=== PATIENT | male | born 1950 | race American Indian/Alaskan Native ===

== ENCOUNTER 2016-11-26 14:02 | Emergency (ER) | payer MEDICARE ==
[2016-11-26 14:15] VITALS: BP 114/81
[2016-11-26 16:30] LABS: Eosinophils % (Auto) 0.6 % (0.0-4.3); Hematocrit 39.2 % (35.5-45.6); Hemoglobin 13.2 gm/dl (11.8-15.2); Mean Corpuscular HGB Conc 34 % (32-34); Mean Corpuscular Hemoglobin 32 pg (28-32); Mean Corpuscular Volume 96 fl (84-94); Platelet Count 240 K/mm3 (140-440); Red Blood Count 4.08 M/mm3 (3.65-5.03); Red Cell Distribution Width 14.6 % (13.2-15.2); White Blood Count 7.3 K/mm3 (4.5-11.0)
[2016-11-26 17:53] LABS: Anion Gap 18 mmol/L; BUN/Creatinine Ratio 10.76; Blood Urea Nitrogen 14 mg/dL (9-20); Calcium 9.8 mg/dL (8.4-10.2); Carbon Dioxide 23 mmol/L (22-30); Chloride 104.7 mmol/L (98-107); Glucose 87 mg/dL (75-100); Potassium 4.5 mmol/L (3.6-5.0); Sodium 141 mmol/L (137-145)
== END 2016-11-26 23:05 | disposition left against medical advice (07) ==
LOC: ED 14:02
DX: R07.9 Chest pain, unspecified (principal); Z53.21 Procedure and treatment not carried out due to patient leaving prior to being seen by health care provider
CPT/HCPCS: 36415; 80048; 84484; 85025; 93005; 93010

== ENCOUNTER 2016-11-28 13:46 | Emergency (ER) | payer MEDICARE ==
[2016-11-28 14:38] LABS: Basophils % (Auto) 1.1 % (0.0-1.8); Eosinophils % (Auto) 0.9 % (0.0-4.3); Hematocrit 38.9 % (35.5-45.6); Hemoglobin 12.8 gm/dl (11.8-15.2); Mean Corpuscular HGB Conc 33 % (32-34); Mean Corpuscular Hemoglobin 31 pg (28-32); Mean Corpuscular Volume 95 fl (84-94); Platelet Count 238 K/mm3 (140-440); Red Blood Count 4.08 M/mm3 (3.65-5.03); Red Cell Distribution Width 14.7 % (13.2-15.2)
[2016-11-28 14:58] LABS: Anion Gap 18 mmol/L; BUN/Creatinine Ratio 11.66; Blood Urea Nitrogen 14 mg/dL (9-20); Calcium 9.3 mg/dL (8.4-10.2); Carbon Dioxide 23 mmol/L (22-30); Chloride 104.4 mmol/L (98-107); Glucose 83 mg/dL (75-100); Potassium 4.5 mmol/L (3.6-5.0); Sodium 141 mmol/L (137-145)
[2016-11-28 15:44] LABS: Bilirubin,Urine NEG (Negative); Blood,Urine NEG (Negative); Ketones,Urine TR mg/dL (Negative); Leukocyte Esterase,Urine TR (Negative); Mucus,Urine FEW /HPF; Nitrite,Urine NEG (Negative); Protein,Urine <15 mg/dL mg/dL (Negative); Urobilinogen,Urine < 2.0 mg/dL (<2.0)
[2016-11-28] MEDS ORDERED: NORCO 5/325 PO ONE (17:50)
--- NOTE | 2016-11-28 18:44 | Emergency Department Report ---
ED General Adult HPI - General Chief complaint: Chest Pain Stated complaint: CHEST PAIN, BACK PAIN Time Seen by Provider: 11/28/16 17:42 Source: patient Mode of arrival: Ambulatory Limitations: No Limitations - History of Present Illness Initial comments: Patient states "I had a little chest pain but I came for my back". Patient complain of a few seconds of chest pain and stated "I am not worried about that I can't deal with it." He complains of pain which actually appears to be more in his right hip to right lower flank area. He states that he can't walk because of pain but is actually able to ambulate without any difficulty he has no lower extremity weakness. He does not complain of any difficulty with urinating or bowel movements. He denies any radiating pain or any numbness in his leg. He states that he's had these symptoms at least since Thursday 3 days ago when he eloped from the waiting room. He does not complain of any chest pain at this time. -: days(s) Location: back (right lower flank right hip) Radiation: non-radiation Quality: aching Consistency: intermittent Improves with: none Worsens with: movement Associated Symptoms: denies other symptoms Treatments Prior to Arrival: none - Related Data Home Medications Medication Instructions Recorded Confirmed Last Taken Aspirin 81 mg PO DAILY 03/10/16 03/10/16 03/10/16 Coenzyme Q-10 100 mg PO BID 03/10/16 03/10/16 Unknown Nitroglycerin [Nitrostat] 0.4 mg SL Q5M PRN 03/10/16 03/10/16 Unknown Previous Rx's Medication Instructions Recorded Last Taken Type Diltiazem Cd [Cardizem CD] 120 mg PO QDAY #30 capsule 02/07/15 03/10/16 Rx Levothyroxine [Synthroid] 150 mcg PO QAM #30 tablet 03/11/16 Unknown Rx traMADol [Ultram 50 MG tab] 50 mg PO Q6HR PRN #14 tablet 11/28/16 Unknown Rx Allergies Allergy/AdvReac Type Severity Reaction Status Date / Time aspirin AdvReac Bleeding Verified 01/17/15 15:03 ED Review of Systems ROS: Stated complaint: CHEST PAIN, BACK PAIN Other details as noted in HPI Constitutional: denies: chills, fever Eyes: denies: eye pain, eye discharge, vision change ENT: denies: ear pain, throat pain Respiratory: denies: cough, shortness of breath, wheezing Cardiovascular: chest pain. denies: palpitations Endocrine: no symptoms reported Gastrointestinal: denies: abdominal pain, nausea, diarrhea Genitourinary: denies: urgency, dysuria Musculoskeletal: as per HPI, back pain. denies: joint swelling, arthralgia Skin: denies: rash, lesions Neurological: denies: headache, weakness, paresthesias Psychiatric: denies: anxiety, depression Hematological/Lymphatic: denies: easy bleeding, easy bruising ED Past Medical Hx - Past Medical History Previous Medical History?: Yes Hx Hypertension: Yes Hx Heart Attack/AMI: No Hx Renal Disease: Yes (CKD STAGE 2) Hx Sickle Cell Disease: No Hx Seizures: No Hx Asthma: Yes Hx COPD: No Hx HIV: No Additional medical history: ulcer hypothyroid. A cardiac catheterization was done 02/05/2015. It showed mild nonobstructive coronary disease. - Surgical History Hx Coronary Stent: Yes (X1 IN 1999 AND X1 IN 2004) Additional Surgical History: hernia surgery 01/21 - Social History Smoking Status: Current Every Day Smoker Substance Use Type: Alcohol - Medications Home Medications: Home Medications Medication Instructions Recorded Confirmed Last Taken Type Diltiazem Cd [Cardizem CD] 120 mg PO QDAY #30 capsule 02/07/15 03/10/16 Rx Aspirin 81 mg PO DAILY 03/10/16 03/10/16 03/10/16 History Coenzyme Q-10 100 mg PO BID 03/10/16 03/10/16 Unknown History Nitroglycerin [Nitrostat] 0.4 mg SL Q5M PRN 03/10/16 03/10/16 Unknown History Levothyroxine [Synthroid] 150 mcg PO QAM #30 tablet 03/11/16 Unknown Rx traMADol [Ultram 50 MG tab] 50 mg PO Q6HR PRN #14 tablet 11/28/16 Unknown Rx ED Physical Exam - General Limitations: No Limitations General appearance: alert, in no apparent distress - Head Head exam: Present: atraumatic, normocephalic - Eye Eye exam: Present: normal appearance. Absent: scleral icterus - ENT ENT exam: Present: mucous membranes moist - Neck Neck exam: Present: normal inspection - Respiratory Respiratory exam: Present: normal lung sounds bilaterally. Absent: respiratory distress - Cardiovascular Cardiovascular Exam: Present: regular rate, normal rhythm. Absent: systolic murmur, diastolic murmur, rubs, gallop - GI/Abdominal GI/Abdominal exam: Present: soft, normal bowel sounds. Absent: distended, tenderness, guarding, rebound, rigid - Rectal Rectal exam: Present: deferred - Extremities Exam Extremities exam: Present: normal inspection, tenderness (patient's discomfort was somewhat reproducible by range of motion of his right hip. It was reasonably well.), normal capillary refill. Absent: pedal edema, joint swelling , calf tenderness - Back Exam Back exam: Present: normal inspection. Absent: CVA tenderness (R), CVA tenderness (L) - Neurological Exam Neurological exam: Present: alert, oriented X3, CN II-XII intact, normal gait. Absent: motor sensory deficit - Psychiatric Psychiatric exam: Present: normal affect, normal mood - Skin Skin exam: Present: warm, dry, intact, normal color. Absent: rash ED Course Vital Signs 11/28/16 11/28/16 11/28/16 14:09 15:56 16:00 Temperature 98.3 F Pulse Rate 53 L 64 Respiratory 20 22 Rate Blood Pressure 141/72 138/75 147/75 O2 Sat by Pulse 98 96 Oximetry 11/28/16 11/28/16 11/28/16 16:01 16:15 16:30 Temperature Pulse Rate 78 67 63 Respiratory 18 21 20 Rate Blood Pressure 147/75 162/66 O2 Sat by Pulse 98 96 Oximetry 11/28/16 11/28/16 11/28/16 16:45 17:00 17:15 Temperature Pulse Rate 72 67 72 Respiratory 23 21 20 Rate Blood Pressure 162/66 126/67 126/67 O2 Sat by Pulse 95 90 96 Oximetry 11/28/16 11/28/16 11/28/16 17:30 17:45 18:00 Temperature Pulse Rate 67 70 66 Respiratory 21 14 19 Rate Blood Pressure 131/64 131/64 124/68 O2 Sat by Pulse 97 96 98 Oximetry ED Medical Decision Making - Lab Data Result diagrams: 11/28/16 14:20 11/28/16 14:20 - EKG Data -: EKG Interpreted by Mt EKG shows normal: sinus rhythm, axis, intervals, QRS complexes, ST-T waves Rate: normal - EKG Data Interpretation: nonspecific ST-T wave wade (mild) Critical care attestation.: If time is entered above; I have spent that time in minutes in the direct care of this critically ill patient, excluding procedure time. ED Disposition Clinical Impression: Right hip pain, Right flank pain Disposition: TO HOME OR SELFCARE Is pt being admited?: No Does the pt Need Aspirin: No Condition: Stable Instructions: Arthralgia (ED), Flank Pain (ED), Chest Pain (ED) Additional Instructions: Follow-up see her primary care provider or the [facility]. Rx for pain as needed. Return any acute change or problem. Also follow up with your glass silverer. Return to the emergency department should you have any significant chest pain. Prescriptions: traMADol [Ultram 50 MG tab] 50 mg PO Q6HR PRN #14 tablet PRN Reason: Pain Referrals: PRIMARY CARE, [Primary Care Provider] - 3-5 Days [facility] [Provider Group] - 3-5 Days Time of Disposition: 19:51
--- NOTE | 2016-11-28 19:20 | Cat Scan Report ---
FINAL REPORT PROCEDURE: CT abdomen and pelvis without contrast. TECHNIQUE: Computerized axial tomography of the abdomen and pelvis was performed without intravenous contrast. This study is performed without intravascular contrast material and its sensitivity for abdominal and pelvic pathology, including neoplasms, inflammation, abscess, free fluid, thrombosis, arterial dissection and infarction, is reduced compared with a contrast enhanced study. HISTORY: Right flank pain and pelvic pain. COMPARISON: No prior studies are available for comparison. FINDINGS: The lung bases are clear. There are no pleural effusions. The heart size is normal. The liver, pancreas and spleen are grossly normal. The gallbladder is present. The adrenal glands are not enlarged. Both kidneys appear normal in size and configuration. There is a small focal area of diminished attenuation within the right kidney. This could represent a simple cyst, but is incompletely evaluated on this unenhanced study. There are no renal calculi. There is no hydronephrosis. The abdominal aorta has a normal caliber. There is no retroperitoneal adenopathy. A normal appendix is visible. The bladder, seminal vesicles and prostate appear normal. The regional skeleton appears intact. IMPRESSION: Possible small right renal cyst. No evidence of acute disease in the abdomen or pelvis.
[2016-11-28 20:02] VITALS: BP 128/72
== END 2016-11-28 20:00 | disposition home or self-care (01) ==
LOC: ED 13:46
DX: M25.551 Pain in right hip (principal); R10.30 Lower abdominal pain, unspecified; I12.9 Hypertensive chronic kidney disease with stage 1 through stage 4 chronic kidney disease, or unspecified chronic kidney disease; N18.2 Chronic kidney disease, stage 2 (mild); J45.909 Unspecified asthma, uncomplicated; F17.200 Nicotine dependence, unspecified, uncomplicated
CPT/HCPCS: 36415; 74176; 80048; 81001; 84484; 85025; 93005; 93010

== ENCOUNTER 2017-04-21 15:55 | Emergency (ER) | payer MEDICARE ==
[2017-04-21 16:06] VITALS: BP 163/89
--- NOTE | 2017-04-21 17:19 | Emergency Department Report ---
ED General Adult HPI - General Chief complaint: Upper Respiratory Infection Stated complaint: CHEST PAIN AND FLU Time Seen by Provider: 04/21/17 17:05 Source: patient Mode of arrival: Ambulatory Limitations: No Limitations - History of Present Illness Initial comments: Patient is 67 years old male history of coronary artery disease, hypertension, chronic kidney disease and asthma. Patient presented to the ER with 2 week history of cough, productive with greenish sputum, fever and chills. Patient denied any nausea or vomiting. Patient denies chest pain or shortness of breath. - Related Data Home Medications Medication Instructions Recorded Confirmed Last Taken Aspirin 81 mg PO DAILY 03/10/16 03/10/16 03/10/16 Coenzyme Q-10 100 mg PO BID 03/10/16 03/10/16 Unknown Nitroglycerin [Nitrostat] 0.4 mg SL Q5M PRN 03/10/16 03/10/16 Unknown Previous Rx's Medication Instructions Recorded Last Taken Type Diltiazem Cd [Cardizem CD] 120 mg PO QDAY #30 capsule 02/07/15 03/10/16 Rx Levothyroxine [Synthroid] 150 mcg PO QAM #30 tablet 03/11/16 Unknown Rx traMADol [Ultram 50 MG tab] 50 mg PO Q6HR PRN #14 tablet 11/28/16 Unknown Rx Allergies Allergy/AdvReac Type Severity Reaction Status Date / Time No Known Allergies Allergy Unverified 04/21/17 16:20 ED Review of Systems ROS: Stated complaint: CHEST PAIN AND FLU Other details as noted in HPI Comment: All other systems reviewed and negative Constitutional: chills, fever Respiratory: cough. denies: shortness of breath, SOB with exertion, SOB at rest Cardiovascular: denies: chest pain, palpitations Gastrointestinal: denies: abdominal pain, nausea, vomiting, diarrhea, constipation, hematemesis, melena, hematochezia Neurological: denies: headache, weakness, numbness, paresthesias ED Past Medical Hx - Past Medical History Hx Hypertension: Yes Hx Heart Attack/AMI: No Hx Renal Disease: Yes (CKD STAGE 2) Hx Sickle Cell Disease: No Hx Seizures: No Hx Asthma: Yes Hx COPD: No Hx HIV: No Additional medical history: ulcer hypothyroid. A cardiac catheterization was done 02/05/2015. It showed mild nonobstructive coronary disease. - Surgical History Hx Coronary Stent: Yes (X1 IN 1999 AND X1 IN 2004) Additional Surgical History: hernia surgery 01/21 - Social History Smoking Status: Current Every Day Smoker Substance Use Type: Alcohol - Medications Home Medications: Home Medications Medication Instructions Recorded Confirmed Last Taken Type Diltiazem Cd [Cardizem CD] 120 mg PO QDAY #30 capsule 02/07/15 03/10/16 Rx Aspirin 81 mg PO DAILY 03/10/16 03/10/16 03/10/16 History Coenzyme Q-10 100 mg PO BID 03/10/16 03/10/16 Unknown History Nitroglycerin [Nitrostat] 0.4 mg SL Q5M PRN 03/10/16 03/10/16 Unknown History Levothyroxine [Synthroid] 150 mcg PO QAM #30 tablet 03/11/16 Unknown Rx traMADol [Ultram 50 MG tab] 50 mg PO Q6HR PRN #14 tablet 11/28/16 Unknown Rx ED Physical Exam - General Limitations: No Limitations General appearance: alert, in no apparent distress - Head Head exam: Present: atraumatic, normocephalic, normal inspection - Eye Eye exam: Present: normal appearance, PERRL - ENT ENT exam: Present: normal exam, normal orophraynx, mucous membranes moist - Respiratory Respiratory exam: Present: normal lung sounds bilaterally. Absent: respiratory distress, wheezes, rales, rhonchi, chest wall tenderness, accessory muscle use, decreased breath sounds, prolonged expiratory - Cardiovascular Cardiovascular Exam: Present: regular rate, normal rhythm, normal heart sounds - GI/Abdominal GI/Abdominal exam: Present: soft, normal bowel sounds. Absent: distended, tenderness, guarding, rebound, rigid, hyperactive bowel sounds, hypoactive bowel sounds, organomegaly, mass, bruit, pulsatile mass - Extremities Exam Extremities exam: Present: normal inspection, full ROM, normal capillary refill - Back Exam Back exam: Present: normal inspection, full ROM. Absent: CVA tenderness (L) - Neurological Exam Neurological exam: Present: alert, oriented X3, CN II-XII intact - Skin Skin exam: Present: warm, intact, normal color. Absent: cyanosis ED Course Vital Signs 04/21/17 16:03 Temperature 99 F Pulse Rate 82 Respiratory 20 Rate Blood Pressure 163/89 O2 Sat by Pulse 96 Oximetry ED Medical Decision Making - Lab Data Result diagrams: 04/21/17 17:40 04/21/17 17:40 - EKG Data -: EKG Interpreted by Me EKG shows normal: sinus rhythm Rate: normal - EKG Data Interpretation: no acute changes - Radiology Data Radiology results: report reviewed Chest x-ray is unremarkable. Critical care attestation.: If time is entered above; I have spent that time in minutes in the direct care of this critically ill patient, excluding procedure time. ED Disposition Clinical Impression: Acute bronchitis, Cough Disposition: DC- TO HOME OR SELFCARE Is pt being admited?: No Condition: Stable Instructions: Acute Bronchitis (ED) Referrals: PRIMARY CARE, [Primary Care Provider] - 3-5 Days
[2017-04-21 17:54] LABS: Basophils % (Auto) 1.5 % (0.0-1.8); Eosinophils % (Auto) 0.4 % (0.0-4.3); Hematocrit 36.8 % (35.5-45.6); Hemoglobin 12.6 gm/dl (11.8-15.2); Lymphocytes # (Auto) 0.5 K/mm3 (1.2-5.4); Lymphocytes % (Auto) 17.5 % (13.4-35.0); Mean Corpuscular HGB Conc 34 % (32-34); Mean Corpuscular Hemoglobin 33 pg (28-32); Mean Corpuscular Volume 98 fl (84-94); Monocytes # (Auto) 0.3 K/mm3 (0.0-0.8); Monocytes % (Auto) 12.1 % (0.0-7.3); Platelet Count 176 K/mm3 (140-440); Red Blood Count 3.77 M/mm3 (3.65-5.03); Red Cell Distribution Width 15.9 % (13.2-15.2)
[2017-04-21 18:22] LABS: Alanine Aminotransferase 45 units/L (7-56); Albumin 4.6 g/dL (3.9-5); BUN/Creatinine Ratio 9; Blood Urea Nitrogen 18 mg/dL (9-20); Calcium 9.6 mg/dL (8.4-10.2); Hemolysis Index 25
--- NOTE | 2017-04-21 19:02 | XRay Report ---
FINAL REPORT PROCEDURE: XR CHEST 1V AP TECHNIQUE: Chest radiograph anteroposterior view. CPT 30900 HISTORY: cough COMPARISON: No prior studies are available for comparison. FINDINGS: Heart: Normal. Mediastinum/Vessels: Normal. Lungs/Pleural space: No infiltrate, effusion, or pneumothorax is seen. Bony thorax: No acute osseous abnormality. Life support devices: None. Clips are seen in the upper abdomen. IMPRESSION: No radiographic evidence of acute cardiopulmonary abnormality.
== END 2017-04-21 19:25 | disposition home or self-care (01) ==
LOC: ED 15:55
DX: J20.9 Acute bronchitis, unspecified (principal); R05 Cough; I12.9 Hypertensive chronic kidney disease with stage 1 through stage 4 chronic kidney disease, or unspecified chronic kidney disease; N18.2 Chronic kidney disease, stage 2 (mild); J45.909 Unspecified asthma, uncomplicated; Z95.818 Presence of other cardiac implants and grafts; F17.200 Nicotine dependence, unspecified, uncomplicated
CPT/HCPCS: 36415; 71045; 80053; 84484; 85025; 93005; 93010

== ENCOUNTER 2017-07-10 11:46 | Emergency (ER) | payer MEDICARE ==
[2017-07-10 12:01] VITALS: BP 101/58
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
[2017-07-10 14:29] LABS: Basophils # (Auto) 0.1 K/mm3 (0.0-0.1); Basophils % (Auto) 1.2 % (0.0-1.8); Eosinophils % (Auto) 0.3 % (0.0-4.3); Hemoglobin 12.2 gm/dl (11.8-15.2); Lymphocytes # (Auto) 1.1 K/mm3 (1.2-5.4); Mean Corpuscular HGB Conc 33 % (32-34); Mean Corpuscular Hemoglobin 34 pg (28-32); Mean Corpuscular Volume 103 fl (84-94); Monocytes # (Auto) 0.5 K/mm3 (0.0-0.8); Monocytes % (Auto) 8.1 % (0.0-7.3); Platelet Count 266 K/mm3 (140-440); Red Blood Count 3.58 M/mm3 (3.65-5.03); Red Cell Distribution Width 15.6 % (13.2-15.2)
[2017-07-10 14:44] LABS: Calcium 9.7 mg/dL (8.4-10.2)
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
== END 2017-07-10 19:27 | disposition home or self-care (01) ==
LOC: ED 11:46
DX: S82.55XA Nondisplaced fracture of medial malleolus of left tibia, initial encounter for closed fracture (principal); I12.9 Hypertensive chronic kidney disease with stage 1 through stage 4 chronic kidney disease, or unspecified chronic kidney disease; N18.2 Chronic kidney disease, stage 2 (mild); J45.909 Unspecified asthma, uncomplicated; Z95.1 Presence of aortocoronary bypass graft; F17.200 Nicotine dependence, unspecified, uncomplicated; Z79.82 Long term (current) use of aspirin; Y04.0XXA Assault by unarmed brawl or fight, initial encounter; Y93.89 Activity, other specified; Y92.89 Other specified places as the place of occurrence of the external cause; Y99.8 Other external cause status
CPT/HCPCS: 36415; 72040; 72100; 80048; 82550; 85025

== ENCOUNTER 2017-07-21 11:30 | Emergency (ER) | payer MEDICARE ==
[2017-07-21 11:39] VITALS: BP 155/79
[2017-07-21] MEDS ORDERED: ROCEPHIN IM ONE (13:24)
[2017-07-21] MEDS ORDERED: ZITHROMAX PO ONE (13:24)
--- NOTE | 2017-07-21 13:28 | Emergency Department Report ---
ED General Adult HPI - General Chief complaint: Medical Clearance Stated complaint: DISCHARGE FROM [facility] Time Seen by Provider: 07/21/17 12:49 Source: patient Mode of arrival: Ambulatory Limitations: No Limitations - History of Present Illness Initial comments: Patient presents to emergency department for white thick penile discharge that has been present for the last couple days. Patient complains of pain with urination. Patient does endorse having a STD exposure. Patient also has taken the splint off of his left leg status post ankle fracture 2 weeks ago. Patient states that he is walking around followed ankle and does not need a splint. -: Sudden Location: genitals Radiation: non-radiation Severity scale (0 -10): 2 Quality: burning Improves with: none Worsens with: other (urination) Associated Symptoms: denies other symptoms Treatments Prior to Arrival: none - Related Data Home Medications Medication Instructions Recorded Confirmed Last Taken Aspirin 81 mg PO DAILY 03/10/16 03/10/16 03/10/16 Coenzyme Q-10 100 mg PO BID 03/10/16 03/10/16 Unknown Nitroglycerin [Nitrostat] 0.4 mg SL Q5M PRN 03/10/16 03/10/16 Unknown Previous Rx's Medication Instructions Recorded Last Taken Type Diltiazem Cd [Cardizem CD] 120 mg PO QDAY #30 capsule 02/07/15 03/10/16 Rx Levothyroxine [Synthroid] 150 mcg PO QAM #30 tablet 03/11/16 Unknown Rx traMADol [Ultram 50 MG tab] 50 mg PO Q6HR PRN #14 tablet 11/28/16 Unknown Rx Amoxicillin [Amoxicillin TAB] 875 mg PO BID #14 tablet 04/21/17 Unknown Rx guaiFENesin/CODEINE [Robitussin AC] 10 ml PO TID PRN #100 ml 04/21/17 Unknown Rx HYDROcodone/APAP 5-325 [[place] 1 each PO Q6HR PRN #14 tablet 07/10/17 Unknown Rx 5/325] Allergies Allergy/AdvReac Type Severity Reaction Status Date / Time No Known Allergies Allergy Unverified 04/21/17 16:20 ED Review of Systems ROS: Stated complaint: DISCHARGE FROM [facility] Other details as noted in HPI Constitutional: denies: chills, fever Eyes: denies: eye pain, eye discharge, vision change ENT: denies: ear pain, throat pain Respiratory: denies: cough, shortness of breath, wheezing Cardiovascular: denies: chest pain, palpitations Endocrine: no symptoms reported Gastrointestinal: denies: abdominal pain, nausea, diarrhea Genitourinary: discharge. denies: urgency, dysuria Musculoskeletal: denies: back pain, joint swelling, arthralgia Skin: denies: rash, lesions Neurological: denies: headache, weakness, paresthesias Psychiatric: denies: anxiety, depression Hematological/Lymphatic: denies: easy bleeding, easy bruising ED Past Medical Hx - Past Medical History Hx Hypertension: Yes Hx Heart Attack/AMI: No Hx Renal Disease: Yes (CKD STAGE 2) Hx Sickle Cell Disease: No Hx Seizures: No Hx Asthma: Yes Hx COPD: No Hx HIV: No Additional medical history: ulcer hypothyroid. A cardiac catheterization was done 02/05/2015. It showed mild nonobstructive coronary disease. - Surgical History Hx Coronary Stent: Yes (X1 IN 1999 AND X1 IN 2004) Additional Surgical History: hernia surgery 01/21, CARDIAC STENT - Social History Smoking Status: Current Every Day Smoker Substance Use Type: None - Medications Home Medications: Home Medications Medication Instructions Recorded Confirmed Last Taken Type Diltiazem Cd [Cardizem CD] 120 mg PO QDAY #30 capsule 02/07/15 03/10/16 Rx Aspirin 81 mg PO DAILY 03/10/16 03/10/16 03/10/16 History Coenzyme Q-10 100 mg PO BID 03/10/16 03/10/16 Unknown History Nitroglycerin [Nitrostat] 0.4 mg SL Q5M PRN 03/10/16 03/10/16 Unknown History Levothyroxine [Synthroid] 150 mcg PO QAM #30 tablet 03/11/16 Unknown Rx traMADol [Ultram 50 MG tab] 50 mg PO Q6HR PRN #14 tablet 11/28/16 Unknown Rx Amoxicillin [Amoxicillin TAB] 875 mg PO BID #14 tablet 04/21/17 Unknown Rx guaiFENesin/CODEINE [Robitussin AC] 10 ml PO TID PRN #100 ml 04/21/17 Unknown Rx HYDROcodone/APAP 5-325 [[place] 1 each PO Q6HR PRN #14 tablet 07/10/17 Unknown Rx 5/325] ED Physical Exam - General Limitations: No Limitations General appearance: alert, in no apparent distress - Head Head exam: Present: atraumatic, normocephalic - Eye Eye exam: Present: normal appearance - ENT ENT exam: Present: mucous membranes moist - Neck Neck exam: Present: normal inspection - Respiratory Respiratory exam: Present: normal lung sounds bilaterally. Absent: respiratory distress - Cardiovascular Cardiovascular Exam: Present: regular rate, normal rhythm. Absent: systolic murmur, diastolic murmur, rubs, gallop - GI/Abdominal GI/Abdominal exam: Present: soft, normal bowel sounds - Rectal Rectal exam: Present: deferred - exam: Present: other (deferred) - Extremities Exam Extremities exam: Present: normal inspection, other (left ankle is tender to palpation) - Back Exam Back exam: Present: normal inspection - Neurological Exam Neurological exam: Present: alert, oriented X3 - Psychiatric Psychiatric exam: Present: normal affect, normal mood - Skin Skin exam: Present: warm, dry, intact, normal color. Absent: rash ED Course Vital Signs 07/21/17 11:33 Temperature 97.7 F Pulse Rate 45 L Respiratory 16 Rate Blood Pressure 155/79 O2 Sat by Pulse 98 Oximetry ED Medical Decision Making - Medical Decision Making Discussed with patient the importance of re-applying the splint to his left leg but the patient declined reapplication of splint. Patient states he is walking around fine and does not need to have the splint on. He has not followed up with orthopedic surgery Critical care attestation.: If time is entered above; I have spent that time in minutes in the direct care of this critically ill patient, excluding procedure time. ED Disposition Clinical Impression: Discharge from penis, STD exposure Disposition: - TO HOME OR SELFCARE Is pt being admited?: No Does the pt Need Aspirin: No Condition: Stable Referrals: IKER OTT JR, MD [Primary Care Provider] - 3-5 Days Time of Disposition: 13:26
[2017-07-21] MEDS ORDERED: XYLOCAINE 1% MPF 5 mL ONE (13:32)
== END 2017-07-21 13:39 | disposition home or self-care (01) ==
LOC: ED 11:30
DX: Z20.2 Contact with and (suspected) exposure to infections with a predominantly sexual mode of transmission (principal); R36.9 Urethral discharge, unspecified; I12.9 Hypertensive chronic kidney disease with stage 1 through stage 4 chronic kidney disease, or unspecified chronic kidney disease; N18.2 Chronic kidney disease, stage 2 (mild); J45.909 Unspecified asthma, uncomplicated; Z95.1 Presence of aortocoronary bypass graft; F17.200 Nicotine dependence, unspecified, uncomplicated
CPT/HCPCS: 96372; 99282; J0696

== ENCOUNTER 2017-10-11 10:30 | Emergency (ER) | payer MEDICARE ==
[2017-10-11 10:39] VITALS: BP 134/99
[2017-10-11] MEDS ORDERED: TORADOL IM ONE (10:59)
[2017-10-11] MEDS ORDERED: AUGMENTIN 875 MG PO ONE (10:59)
--- NOTE | 2017-10-11 11:10 | Emergency Department Report ---
Chief Complaint: Animal Bite Stated Complaint: DOG BITE Time Seen by Provider: 10/11/17 10:52 - HPI History of Present Illness: 67-year-old Afro-[place] male presents to the emergency department with complaint of dog bites to the right hand. The dog was his friend's dog and is up-to-date with his vaccinations. He has multiple abrasions, puncture wounds and pain to that right hand. He is unsure of the last time he had a tetanus booster. He has not taken anything for his symptoms prior to presentation. He has a ring on his pinky finger where he also has some swelling. He only complains of a past medical history of "heart problems." - ROS Review of Systems: Positive for right hand pain, abrasions, puncture wounds, swelling Negative for erythema, discharge - Exam Vital Signs: Vital Signs 10/11/17 10:31 Temperature 97.9 F Pulse Rate 52 L Respiratory 18 Rate Blood Pressure 134/99 O2 Sat by Pulse 98 Oximetry Physical Exam: Patient has +2 over 4 radial pulse and cap refill less than 2 seconds to the affected right hand and fingers. There is an abrasion and/or laceration to the dorsal right thumb, to the proximal palm and a few other areas. No current bleeding. There is some swelling to the hand and fingers and the patient has a ring on his fifth/pinky finger. MSE screening note: Focused history and physical exam performed. Due to findings the following was ordered: Patient will receive Augmentin, a tetanus booster. He will have an x-ray of his right hand. We will cut off his ring. ED Disposition for MSE Condition: Stable
--- NOTE | 2017-10-11 11:23 | Emergency Department Report ---
ED Animal Bite HPI - General Chief Complaint: Animal Bite Stated Complaint: DOG BITE Time Seen by Provider: 10/11/17 10:52 Source: patient, family Mode of arrival: Ambulatory Limitations: No Limitations - History of Present Illness Initial Comments: 67-year-old Afro-[place] male presents to the emergency department with complaint of dog bites to the right hand. The dog was his friend's dog and is up-to-date with his vaccinations. He has multiple abrasions, puncture wounds and pain to that right hand. He is unsure of the last time he had a tetanus booster. He has not taken anything for his symptoms prior to presentation. He has a ring on his pinky finger where he also has some swelling. He only complains of a past medical history of "heart problems." Pain to right hand is 6 out of 10 and worse with palpation and achy. No alleviating factors. No medication taken for pain prior to coming to the hospital. This happened at 6 PM yesterday evening. Denies any restriction is moving his fingers of right hand or any radiation of pain proximally. He said the dog is service the and lives in door. Complaint: animal bite Onset/Timin -: hour(s) Right: Hand (the bite puncture wound to palm and scratch rg to right thumb and right small finger. Pain) Animal: dog Animal Control Notified: Yes Description: household pet, immunizations UTD, appeared well Mechanism: bite (puncture wound to right palm), scratch, contact with mucous membr Pain Description: constant, other (a can) Severity scale (0 -10): 6 Context: playing with animal Associated Symptoms: none. 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 received rabies vaccination 03/28) Home Medications Medication Instructions Recorded Confirmed Last Taken Aspirin 81 mg PO DAILY 03/10/16 03/10/16 03/10/16 Coenzyme Q-10 100 mg PO BID 03/10/16 03/10/16 Unknown Nitroglycerin [Nitrostat] 0.4 mg SL Q5M PRN 03/10/16 03/10/16 Unknown Previous Rx's Medication Instructions Recorded Last Taken Type Diltiazem Cd [Cardizem CD] 120 mg PO QDAY #30 capsule 02/07/15 03/10/16 Rx Levothyroxine [Synthroid] 150 mcg PO QAM #30 tablet 03/11/16 Unknown Rx traMADol [Ultram 50 MG tab] 50 mg PO Q6HR PRN #14 tablet 11/28/16 Unknown Rx Amoxicillin [Amoxicillin TAB] 875 mg PO BID #14 tablet 04/21/17 Unknown Rx guaiFENesin/CODEINE [Robitussin AC] 10 ml PO TID PRN #100 ml 04/21/17 Unknown Rx HYDROcodone/APAP 5-325 [[place] 1 each PO Q6HR PRN #14 tablet 07/10/17 Unknown Rx 5/325] Acetaminophen/Codeine [Tylenol 1 tab PO Q6H PRN #14 tab 10/11/17 Unknown Rx /Codeine # 3 tab] Amoxicillin/K Clav Tab [Augmentin 1 tab PO Q12HR #20 tab 10/11/17 Unknown Rx 875MG TAB] Allergies Allergy/AdvReac Type Severity Reaction Status Date / Time No Known Allergies Allergy Verified 10/11/17 10:31 ED Review of Systems ROS: Stated complaint: DOG BITE Other details as noted in HPI Constitutional: denies: chills, fever ENT: denies: throat pain, hearing loss, congestion Respiratory: denies: cough, shortness of breath, SOB with exertion, SOB at rest , stridor, wheezing Cardiovascular: denies: chest pain, palpitations, dyspnea on exertion, edema, syncope, paroxysmal nocturnal dyspnea Gastrointestinal: denies: nausea, vomiting Musculoskeletal: joint swelling, arthralgia. denies: back pain, myalgia Skin: other (abrasion and puncture wound to right hand and fingers). denies: rash, lesions Neurological: denies: headache, numbness, paresthesias ED Past Medical Hx - Past Medical History Previous Medical History?: Yes Hx Hypertension: Yes Hx Heart Attack/AMI: No Hx Renal Disease: Yes (CKD STAGE 2) Hx Sickle Cell Disease: No Hx Seizures: Yes Hx Asthma: Yes Hx COPD: No Hx HIV: No Additional medical history: ulcer hypothyroid. A cardiac catheterization was done 02/05/2015. It showed mild nonobstructive coronary disease. - Surgical History Past Surgical History?: Yes Hx Coronary Stent: Yes (X1 IN 1999 AND X1 IN 2004) Additional Surgical History: hernia surgery 01/21, CARDIAC STENT - Family History Family history: CAD/MS, hypertension - Social History Smoking Status: Current Every Day Smoker Substance Use Type: None - Medications Home Medications: Home Medications Medication Instructions Recorded Confirmed Last Taken Type Diltiazem Cd [Cardizem CD] 120 mg PO QDAY #30 capsule 02/07/15 03/10/16 Rx Aspirin 81 mg PO DAILY 03/10/16 03/10/16 03/10/16 History Coenzyme Q-10 100 mg PO BID 03/10/16 03/10/16 Unknown History Nitroglycerin [Nitrostat] 0.4 mg SL Q5M PRN 03/10/16 03/10/16 Unknown History Levothyroxine [Synthroid] 150 mcg PO QAM #30 tablet 03/11/16 Unknown Rx traMADol [Ultram 50 MG tab] 50 mg PO Q6HR PRN #14 tablet 11/28/16 Unknown Rx Amoxicillin [Amoxicillin TAB] 875 mg PO BID #14 tablet 04/21/17 Unknown Rx guaiFENesin/CODEINE [Robitussin AC] 10 ml PO TID PRN #100 ml 04/21/17 Unknown Rx HYDROcodone/APAP 5-325 [[place] 1 each PO Q6HR PRN #14 tablet 07/10/17 Unknown Rx 5/325] Acetaminophen/Codeine [Tylenol 1 tab PO Q6H PRN #14 tab 10/11/17 Unknown Rx /Codeine # 3 tab] Amoxicillin/K Clav Tab [Augmentin 1 tab PO Q12HR #20 tab 10/11/17 Unknown Rx 875MG TAB] ED Physical Exam - General Limitations: No Limitations General appearance: alert, in no apparent distress - Head Head exam: Present: atraumatic, normocephalic - Eye Eye exam: Present: normal appearance, PERRL, EOMI Pupils: Absent: normal accommodation - ENT ENT exam: Present: normal exam, normal orophraynx, mucous membranes moist, TM's normal bilaterally, normal external ear exam - Neck Neck exam: Present: normal inspection, full ROM. Absent: tenderness, lymphadenopathy - Respiratory Respiratory exam: Present: normal lung sounds bilaterally. Absent: respiratory distress, chest wall tenderness - Cardiovascular Cardiovascular Exam: Present: normal rhythm, bradycardia, normal heart sounds. Absent: systolic murmur, diastolic murmur - Extremities Exam Extremities exam: Present: full ROM (full range of motion to all extremities patient reports pain with opening and closing and, right without any radiation.) , tenderness (tenderness appropriate to right palmar aspect of hand at puncture wound and also right first and fifth digits around the abrasion site.), normal capillary refill, joint swelling (right hand dorsal and palmar), other (No cce. + 2 pulses in all extremities, no neurovascular compromise.Swollen to the right hand with tenderness to palpation, puncture wound and abrasion.). Absent: normal inspection, pedal edema, calf tenderness - Back Exam Back exam: Present: normal inspection, full ROM, other (ambulates without any difficulties). Absent: tenderness, CVA tenderness (R), CVA tenderness (L), muscle spasm, vertebral tenderness, rash noted - Neurological Exam Neurological exam: Present: alert, oriented X3, normal gait, reflexes normal, other (no focal neurological deficit). Absent: motor sensory deficit - Psychiatric Psychiatric exam: Present: normal affect, normal mood - Skin Skin exam: Present: warm, dry, normal color, abrasion (right fifth and first digits, superficial), other (puncture wound and abrasion 2 to right hand). Absent: intact - Expanded Skin Exam Expanded Type of lesion: Present: laceration (superficial puncture wound.), bite/sting ( puncture wound to right palm. Superficial. Positive mucous membranes on tablet now bony abnormality. No tendon exposure.), abrasion (right first and fifth digits) Distribution of rash: RUE (right first DIP and right fifth digit superficial abrasion) Description of rash: Present: tenderness (right hand), swelling (right hand). Absent: erythematous, crusting, discharge, fluctuant, indurated ED Course Vital Signs 10/11/17 10:31 Temperature 97.9 F Pulse Rate 52 L Respiratory 18 Rate Blood Pressure 134/99 O2 Sat by Pulse 98 Oximetry - Reevaluation(s) Reevaluation #1: 10/11/17 12:59 Patient received Toradol 30 mg IM in the emergency room for right hand pain status post dog bite 18 hours ago. Pain is better. Patient able to open and close his right hand and no restriction of movement fingers. He received 60.5 mL to update tetanus. Patient also received first dose of Augmentin emergency room without any adverse reaction. Extensive wound care with irrigation to the right palm puncture site that is superficial without any foreign body noted. A abrasions to right thumb and small finger cleansed with normal saline and all wounds cleansed with iodine and saline. Neosporin ointment placed to abrasion sites and Steri-Strips 2 placed to right palm puncture wound. Patient tolerated procedure well. - Procedure Description Procedures done: Wound care status post dog bite 18 hours ago. Extensive wound care with irrigation to the right palm puncture site that is superficial without any foreign body noted. A abrasions to right thumb and small finger cleansed with normal saline and all wounds cleansed with iodine and saline. Neosporin ointment placed to abrasion sites and Steri-Strips 2 placed to right palm puncture wound. Patient tolerated procedure well. Tetanus vaccine updated. - Laceration /Wound Repair Right Palm Hand Wound Location: upper extremity (right Palm below the right fourth and fifth finger.) Wound Length (cm): 1 (1.5 cm) Wound's Depth, Shape: superficial, irregular, stellate Wound Explored: no foreign body removed Irrigated w/ Saline (ccs): 400 Betadine Prep?: Yes Volume Anesthetic (ccs): 0 Wound Debrided: moderate Wound Repaired With: Steri-strips Number of Sutures: 2 Sterile Dressing Applied?: Yes Critical care attestation.: If time is entered above; I have spent that time in minutes in the direct care of this critically ill patient, excluding procedure time. ED Disposition Clinical Impression: Swelling of right hand, Right hand pain Dog bite Qualifiers: Encounter type: initial encounter Qualified Code(s): W54.0XXA - Bitten by dog, initial encounter Abrasion of finger of right hand Qualifiers: Encounter type: initial encounter Qualified Code(s): S60.419A - Abrasion of unspecified finger, initial encounter Laceration of right hand with delay in treatment Qualifiers: Encounter type: initial encounter Qualified Code(s): S61.411A - Laceration without foreign body of right hand, initial encounter Disposition: DC-01 TO HOME OR SELFCARE Is pt being admited?: No Does the pt Need Aspirin: No Condition: Stable Instructions: Animal Bite (ED), Laceration (ED), Acute Wound Care (ED), Abrasion (ED), Skin Adhesive Care (ED), Arthralgia (ED) Additional Instructions: Please see discharge instruction in acute wound care Follow-up the primary care in 2 days Keep affected area clean and dry Take Tylenol 3 for pain and please do not drive or operate heavy machinery while taking this medication Take Augmentin antibiotic Return to the emergency room if, he developed fever, chills, increased pain and drainage from site, nausea and vomited, increase in redness and/or weakness. Prescriptions: Acetaminophen/Codeine [Tylenol /Codeine # 3 tab] 1 tab PO Q6H PRN #14 tab PRN Reason: moderate to severe pain Amoxicillin/K Clav Tab [Augmentin 875MG TAB] 1 tab PO Q12HR #20 tab Referrals: PRIMARY CARE, [Primary Care Provider] - 10/13/17 Forms: Work/School Release Form(ED) ED Medical Decision Making - Radiology Data Radiology results: report reviewed, image reviewed interpreted by me: X-ray image of the right hand reviewed and no radiopaque foreign body seen. No bony abnormality. Still awaiting final report from radiologist. Minimal soft tissue swelling. * X-ray of right hand status post dog bite reveals no no acute fracture. 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 No foreign body mentioned. Suspect dictated by radiologist report reviewed by myself. Patient: RITESH RAPP MR#: [id number] : 1950 Acct:[id number] Age/Sex: 67 / M ADM Date: 10/11/17 Loc: ED Attending Dr: Ordering Physician: ESTIVEN BHAKTA DO Date of Service: 10/11/17 Procedure(s): XR hand 3+V RT Accession Number(s): [id number] cc: ESTIVEN BHAKTA DO Fluoro Time In Minutes: FINAL REPORT EXAM: XR RT HAND Acute fracture. CLINICAL INDICATIONS: dog bite, right hand pain FINDINGS: PA, lateral and oblique views of the right hand were acquired. The site of injury is not indicated. There is advanced osteoarthritis of the second and third proximal interphalangeal joints. There is a well-corticated ossific density ulnar to the second proximal interphalangeal joint, 0.4 cm, likely previouslyavulsed steophyte. There is soft tissue swelling of the second and third proximal interphalangeal joints. No definite acute fracture is seen. IMPRESSION: THE SITE OF INJURY IS NOT INDICATED ADVANCED OSTEOARTHRITIS OF SECOND AND THIRD PROXIMAL INTERPHALANGEAL JOINTS NO DEFINITE ACUTE FRACTURE IS SEEN Transcribed By: RAYO Dictated By: DENNY VARGAS MD Electronically Authenticated By: DENNY VARGAS MD Signed Date/Time: 10/11/171346 DD/ 46 TD/TT: 10/11/171346 - Medical Decision Making This 67-year-old male presenting to the emergency room after being bitten by dog 18 hours ago. He sustained abrasion to right hand at the thumb and finger and also puncture wound to the right palm. He is complaining of pain and swelling to his right hand. His tetanus vaccine is up-to-date but dog is [facility] and his vaccination is up-to-date. I spoke with on her and he says that dog rabies vaccination on 03/28/2017 I EXAMINED PATIENT AND HIS PHYSICAL EXAM IS NORMAL EXCEPT HE HAS RIGHT HAND SWOLLEN WITHOUT ANY RESTRICTION IN MOVEMENT. HE DOES HAVE PAIN WITH RANGE OF MOTION TO HIS FINGERS AND OPEN AND CLOSE HIS HAND BUT DENIES ANY RADIATION OF PAIN. NO SIGNS OF TENDON INJURY AND WOUND ARE VERY SUPERFICIAL TO INCLUDE ABRASIONS TO RIGHT FIFTH DIGIT AND RIGHT FIRST DIGIT. HE ALSO HAS SUPERFICIAL PUNCTURE WOUND TO HIS RIGHT PALM. MINIMAL SOFT TISSUE SWELLING, NO FOREIGN BODY NOTED AND NO BONY MALLET. RESULTS WAS RELAYED TO THE PATIENT AND HE VOICED UNDERSTANDING. HE ALSO FOR SINUSITIS DIAGNOSIS. WOUND CARE DONE PLEASE REFER TO PROCEDURE NOTE FOR DETAILS. PATIENT TOLERATED WELL. PATIENT HAD X- RAYS OF HIS RIGHT HAND AND NO FOREIGN BODY NOTED WITH SOME MINIMAL SOFT TISSUE SWELLING. PATIENT WAS GIVEN AUGMENTIN 800 MG EMERGENCY ROOM FOR DOG BITES WOUND , TETANUS VACCINE IS UPDATED WITH BOOSTRIX 0.5 ML. NO NEED FOR RABIES VACCINATION OR IMMUNOGLOBULIN WITH HIS DOG IS UP-TO-DATE ON VACCINATION. PATIENT WAS ALSO GIVEN TORADOL 30 MG IM IN EMERGENCY ROOM WHICH CONTROLLED HIS PAIN. PATIENT IS STABLE AND HE HAS A PRIMARY CARE PHYSICIAN I TOLD HIM TO FOLLOW-UP IN 2 DAYS WITH HIS PRIMARY CARE STATUS POST DOGBITE. A/P Dog bite right hand with delayed presentation-patient was bitten by dog 18 hours ago. Tetanus vaccine updated and patient was started noted Augmentin and will be discharged homeon Augmentin. X-ray of right hand showed no foreign body , mild soft tissue swelling but no bony abnormality Multiple abrasion right hand right first and fifth digits which is superficial- Neosporin ointment after extensive wound care. Dog up-to-date on vaccination Arthralgia right hand-Toradol 30 mg IM given for relief of pain. Patient educated on the right, medication, signs of infection, to return to the emergency room if he develops rigidity and fingers, radiation of pain across extremity, inability to move his right hand, drainage and increased swelling redness to right hand, fever and chills and he voiced understanding Patient discharged home in stable condition with a prescription for Augmentin, Tylenol 3 and to follow-up with his primary care physician in 2 days and he was understanding. Pain is controlled. Vital signs stabilized and febrile. - Differential Diagnosis hand fracture open versus closed, sprain, strain, foreign body, MSK pain
[2017-10-11] MEDS ORDERED: NACL 0.9% IR ONE (11:28)
[2017-10-11] MEDS ORDERED: BOOSTRIX IM ONE (11:45)
[2017-10-11] MEDS: TENIVAC IM ONE ×2 (12:29→13:16)
[2017-10-11] MEDS ORDERED: TRIPLE ANTIBIOTIC TP ONE (13:02)
--- NOTE | 2017-10-11 13:53 | XRay Report ---
FINAL REPORT EXAM: XR RT HAND CLINICAL INDICATIONS: dog bite, right hand pain FINDINGS: PA, lateral and oblique views of the right hand were acquired. The site of injury is not indicated. There is advanced osteoarthritis of the second and third proximal interphalangeal joints. There is a well-corticated ossific density ulnar to the second proximal interphalangeal joint, 0.4 cm, likely previouslyavulsed steophyte. There is soft tissue swelling of the second and third proximal interphalangeal joints. No definite acute fracture is seen. IMPRESSION: THE SITE OF INJURY IS NOT INDICATED ADVANCED OSTEOARTHRITIS OF SECOND AND THIRD PROXIMAL INTERPHALANGEAL JOINTS NO DEFINITE ACUTE FRACTURE IS SEEN
== END 2017-10-11 13:32 | disposition home or self-care (01) ==
LOC: ED 10:30
DX: S61.411A Laceration without foreign body of right hand, initial encounter (principal); I12.9 Hypertensive chronic kidney disease with stage 1 through stage 4 chronic kidney disease, or unspecified chronic kidney disease; N18.2 Chronic kidney disease, stage 2 (mild); J45.909 Unspecified asthma, uncomplicated; F17.200 Nicotine dependence, unspecified, uncomplicated; Z95.1 Presence of aortocoronary bypass graft; Z79.82 Long term (current) use of aspirin; W54.0XXA Bitten by dog, initial encounter; Y93.89 Activity, other specified; Y92.89 Other specified places as the place of occurrence of the external cause; Y99.8 Other external cause status
CPT/HCPCS: 73130; 90471; 90715; 96372; 99283; J1885; 90714; A6250

== ENCOUNTER 2018-06-03 12:46 | Inpatient (IN) | payer MEDICARE ==
--- NOTE | 2018-06-03 13:24 | Emergency Department Report ---
ED Chest Pain HPI - General Chief Complaint: Chest Pain Stated Complaint: CHEST PAIN/TACHYCARDIA Time Seen by Provider: 06/03/18 13:05 Source: patient, EMS Mode of arrival: Stretcher Limitations: No Limitations - History of Present Illness Initial Comments: 68-year-old male presents to ED following firing of AICD. Patient says he was in a store when he began to experience chest pain, shortness of breath, felt lightheaded as if he was going to pass out. EMS was called, reported patient's heart rate was in the 150s, appeared to be SVT. Adenosine was about to be administered when patient's defibrillator fired. At that moment, heart rate improved, chest pain and shortness of breath resolved. Patient reported tobacco use, EtOH use, and drug use. Patient states he smoked a "Geekjoint" last night, which is tobacco with cocaine sprinkled on top. Denies any drug use today. Cardiology: Dr Irena FONTENOT Complaint: chest pain -: This afternoon Onset: during rest Pain Location: left chest Pain Radiation: none Severity: moderate Severity scale (0 -10): 0 Quality: tightness Consistency: now resolved Improves With: other (AICD firing) Worsens With: nothing re: dyspnea. denies: nausea, vomting, diaphoresis Treatments Prior to Arrival: defibrillation (by pt's own AICD) - Related Data Home Medications Medication Instructions Recorded Confirmed Last Taken amLODIPine [Norvasc] 5 mg PO DAILY 06/03/18 06/03/18 Unknown Allergies Allergy/AdvReac Type Severity Reaction Status Date / Time No Known Allergies Allergy Verified 10/11/17 10:31 Heart Score - HEART Score History: Highly suspicious EKG: Non-specific Age: > 65 Risk factors: > 3 risk factors or hx of atherosclerotic disease Troponin: < normal limit HEART Score: 7 ED Review of Systems ROS: Stated complaint: CHEST PAIN/TACHYCARDIA Other details as noted in HPI Comment: All other systems reviewed and negative Constitutional: denies: chills, fever Respiratory: shortness of breath. denies: cough Cardiovascular: chest pain Gastrointestinal: denies: nausea, vomiting ED Past Medical Hx - Past Medical History Hx Hypertension: Yes Hx Heart Attack/AMI: No Hx Renal Disease: Yes (CKD STAGE 2) Hx Sickle Cell Disease: No Hx Seizures: Yes Hx Asthma: Yes Hx COPD: No Hx HIV: No Additional medical history: ulcer hypothyroid. A cardiac catheterization was done 02/05/2015. It showed mild nonobstructive coronary disease. - Surgical History Hx Coronary Stent: Yes (X1 IN 1999 AND X1 IN 2004) Additional Surgical History: hernia surgery 01/21, CARDIAC STENT - Social History Smoking Status: Current Every Day Smoker Substance Use Type: Alcohol, Cocaine - Medications Home Medications: Home Medications Medication Instructions Recorded Confirmed Last Taken Type amLODIPine [Norvasc] 5 mg PO DAILY 06/03/18 06/03/18 Unknown History ED Physical Exam - General Limitations: No Limitations General appearance: alert, in no apparent distress - Head Head exam: Present: atraumatic, normocephalic - Eye Eye exam: Present: normal appearance - ENT ENT exam: Present: mucous membranes moist - Neck Neck exam: Present: normal inspection - Respiratory Respiratory exam: Present: normal lung sounds bilaterally. Absent: respiratory distress - Cardiovascular Cardiovascular Exam: Present: regular rate, normal rhythm - GI/Abdominal GI/Abdominal exam: Present: soft. Absent: distended, tenderness - Extremities Exam Extremities exam: Present: normal inspection - Neurological Exam Neurological exam: Present: alert, oriented X3, CN II-XII intact. Absent: motor sensory deficit - Psychiatric Psychiatric exam: Present: normal affect, normal mood - Skin Skin exam: Present: warm, dry, intact, normal color ED Course Vital Signs 06/03/18 06/03/18 06/03/18 12:55 13:00 13:15 Temperature Pulse Rate 80 67 Respiratory 18 18 13 Rate Blood Pressure 114/80 Blood Pressure 108/72 [Left] O2 Sat by Pulse 96 91 Oximetry 06/03/18 06/03/18 14:15 14:35 Temperature 97.9 F Pulse Rate 69 Respiratory 12 Rate Blood Pressure 108/70 Blood Pressure [Left] O2 Sat by Pulse 92 Oximetry - Reevaluation(s) Reevaluation #1: 06/03/18 15:[address] [employer] rep called back. States pt has pacer, not defibrillator, and it was NOT activated. Reports no abnormal findings. - Consultations Consultation #1: 06/03/18 13:43 Dr Paz at bedside to see the pt. ED Medical Decision Making - Lab Data Result diagrams: 06/03/18 13:29 06/03/18 13:29 - EKG Data -: EKG Interpreted by Me EKG shows normal: sinus rhythm, axis, intervals, QRS complexes Rate: normal - EKG Data When compared to previous EKG there are: no significant change (compared to 04/2017) Interpretation: other (borderline V2 ST elevation, no reciprocal changes) - Radiology Data Radiology results: report reviewed, image reviewed - Medical Decision Making 68-year-old male with pacemaker presents for chest pain, shortness of breath, near-syncope 1 day after using cocaine. The patient believed that he received a shock from his implanted device, however cardiologists found that patient does not have a defibrillator initially has a pacer. And, interrogation found no intervention, findings were normal. EKG unchanged from previous, troponin normal. Patient seen and evaluated by drafter construction at bedside. Will admit patient for further observation to hospitalist, Dr. Toledo. Bridge orders placed at his request. - Differential Diagnosis arrythmia, ACS, CHF, drug abuse Critical care attestation.: If time is entered above; I have spent that time in minutes in the direct care of this critically ill patient, excluding procedure time. ED Disposition Clinical Impression: Chest pain, Cocaine abuse Disposition: -09 OP ADMIT IP TO THIS HOSP Is pt being admited?: Yes Condition: Stable Time of Disposition: 15:50
[2018-06-03 13:56] LABS: Basophils # (Auto) 0.1 K/mm3 (0.0-0.1); Eosinophils % (Auto) 1.1 % (0.0-4.3); Hematocrit 36.5 % (35.5-45.6); Hemoglobin 12.5 gm/dl (11.8-15.2); Lymphocytes # (Auto) 0.9 K/mm3 (1.2-5.4); Lymphocytes % (Auto) 27.2 % (13.4-35.0); Mean Corpuscular HGB Conc 34 % (32-34); Mean Corpuscular Volume 102 fl (84-94); Monocytes # (Auto) 0.2 K/mm3 (0.0-0.8); Monocytes % (Auto) 6.4 % (0.0-7.3); Platelet Count 225 K/mm3 (140-440); Red Blood Count 3.57 M/mm3 (3.65-5.03); Red Cell Distribution Width 15.5 % (13.2-15.2)
[2018-06-03 14:05] LABS: INR 0.84 (0.87-1.13)
--- NOTE | 2018-06-03 14:05 | XRay Report ---
AP CHEST: HISTORY: chest pain A 2-lead pacemaker device has been inserted since 04/21/17. Heart size and pulmonary vascularity are within normal limits. The lungs are clear. No evidence for pneumonia, pleural effusion or pneumothorax. Surgical clips are identified overlying the GE junction, correlate with history. IMPRESSION: No acute cardiopulmonary process is identified.
[2018-06-03 14:06] LABS: Partial Thromboplastin Time 33.3 Sec. (24.2-36.6)
[2018-06-03 15:20] LABS: BUN/Creatinine Ratio 11; Blood Urea Nitrogen 16 mg/dL (9-20); Calcium 9.5 mg/dL (8.4-10.2); Hemolysis Index 13
[2018-06-03] MEDS ORDERED: ASPIRIN ONE (15:53)
[2018-06-03] MEDS ORDERED: ASPIRIN PO ONE (15:54)
--- NOTE | 2018-06-03 21:06 | Consultation ---
History of Present Illness Consult date: 06/03/18 Consult reason: arrhythmia, chest pain, shortness of breath History of present illness: 68-year-old man who is admitted to the hospital, presented to the emergency room with complaints of chest pain and palpitations. Apparently it's reported by the rig builder got to him why his heart rate was 150, but there are no rhythm strips for review. It is also reported that the patient subsequently experienced a "defibrillator discharge", but this patient does not have an ICD. Instead, he has a dual-chamber [employer] pacemaker implanted in February 2018 for sinus node dysfunction. On presentation, his ECG is normal sinus rhythm, with QS complexes in V1 to V2, unchanged from his previous ECG tracings. Cardiac enzymes are normal. Chest x- ray shows his dual-chamber pacemaker, normal size cardiac silhouette, no acute changes. The patient has an extensive cardiac disease workup. Three cardiac catheterization procedures in the past several years, in 2009 and twice in 2014 both documented no significant coronary artery disease. He has also had several negative thallium stress test. Most recent stress test was in February 2018 du ring which he exercised for 9 minutes of the Aurelio protocol. Past History Past Medical History: arrhythmia Past Surgical History: Other ([employer] dual-chamber pacemaker implanted February 2018) Medications and Allergies Allergies Allergy/AdvReac Type Severity Reaction Status Date / Time No Known Allergies Allergy Verified 10/11/17 10:31 Home Medications Medication Instructions Recorded Confirmed Last Taken Type amLODIPine [Norvasc] 5 mg PO DAILY 06/03/18 06/03/18 Unknown History Review of Systems Cardiovascular: chest pain, palpitations, shortness of breath, no orthopnea, no rapid/irregular heart beat, no edema, no syncope, no lightheadedness Physical Examination Vital Signs Pulse Resp BP Pulse Ox 80 18 108/72 96 06/03/18 12:55 06/03/18 12:55 06/03/18 12:55 06/03/18 12:55 General appearance: no acute distress HEENT: Positive: PERRL Neck: Positive: neck supple Cardiac: Positive: Reg Rate and Rhythm Lungs: Positive: Decreased Breath Sounds Neuro: Positive: Grossly Intact Abdomen: Positive: Soft Male genitourinary: Positive: deferred Skin: Positive: Clear Extremities: Absent: edema Results 06/03/18 13:29 03/28/19 13:29 Coagulation 06/03/18 Range/Units 13:29 PT 12.0 L (12.2-14.9) Sec. INR 0.84 L (0.87-1.13) APTT 33.3 (24.2-36.6) Sec. CBC 06/03/18 Range/Units 13:29 WBC 3.5 L (4.5-11.0) K/mm3 RBC 3.57 L (3.65-5.03) M/mm3 Hgb 12.5 (11.8-15.2) gm/dl Hct 36.5 (35.5-45.6) % Plt Count 225 (140-440) K/mm3 Lymph # 0.9 L (1.2-5.4) K/mm3 [place] # 0.2 (0.0-0.8) K/mm3 Eos # 0.0 (0.0-0.4) K/mm3 Baso # 0.1 (0.0-0.1) K/mm3 Comprehensive Metabolic Panel 06/03/18 Range/Units 13:29 Sodium 138 (137-145) mmol/L Potassium 3.6 (3.6-5.0) mmol/L Chloride 100.8 (98-107) mmol/L Carbon Dioxide 25 (22-30) mmol/L BUN 16 (9-20) mg/dL Creatinine 1.5 (0.8-1.5) mg/dL Glucose 82 (75-100) mg/dL Calcium 9.5 (8.4-10.2) mg/dL EKG interpretations - Telemetry EKG Rhythm: Sinus Rhythm Assessment and Plan - Patient Problems (1) Chest pain Current Visit: Yes Status: Acute Plan to address problem: Chest pain is atypical, he has had extensive noninvasive and invasive cardiac assessment in the past several years, no evidence of coronary artery disease. No further ischemic workup is indicated. (2) Palpitations Current Visit: Yes Status: Acute Plan to address problem: The palpitations, and heart rate of 154 reported from the field comes with no documented telemetry strips are. As outpatient, will recommend further event monitoring for ambulatory tachycardia arrhythmias.
[2018-06-03] MEDS ORDERED: ZOFRAN IV PRN (21:33)
[2018-06-03] MEDS ORDERED: SODIUM CHLORIDE FLUSH SYRINGE 10 ML IV PRN (21:33)
[2018-06-03] MEDS ORDERED: TYLENOL PO PRN (21:33)
[2018-06-03] MEDS ORDERED: DILAUDID IV PRN (21:33)
[2018-06-03] MEDS ORDERED: AMBIEN PO PRN (21:33)
[2018-06-03] MEDS ORDERED: SODIUM CHLORIDE FLUSH SYRINGE 10 ML IV SCH (22:00)
[2018-06-03] MEDS ORDERED: PEPCID IV SCH (22:00)
[2018-06-03] MEDS: PERCOCET 5/325 PO PRN (22:26)
[2018-06-03] MEDS: NORVASC PO SCH (22:26)
--- NOTE | 2018-06-04 06:41 | Event Note ---
Date: 06/03/18 See Dictated H/p in reports Chest pain -R/o OR Lexiscan in AM AICD-firing CKD
[2018-06-04 06:46] LABS: Alanine Aminotransferase 14 units/L (7-56); Albumin 3.7 g/dL (3.9-5); BUN/Creatinine Ratio 12; Blood Urea Nitrogen 18 mg/dL (9-20); Calcium 8.7 mg/dL (8.4-10.2); Hemolysis Index 5
[2018-06-04 07:28] VITALS: BP 123/69
--- NOTE | 2018-06-04 08:18 | History and Physical Report ---
CHIEF COMPLAINT: Chest pain today. HISTORY OF PRESENT ILLNESS: A 68-year-old male comes in for chest pain and states he was about to pass out. The patient had extensive cardiac workup in the past. The patient states he had a defibrillator discharge, but the patient does not have a defibrillator. The patient has a dual chamber pacemaker. The patient had multiple cardiac caths. The patient had recent multiple stress tests as recent as 02/2018 which was negative. The patient states he smoked geek-joint, which is tobacco with cocaine sprinkled on top. No symptoms now. Chest pain was very intermittent, 5/10. PAST MEDICAL HISTORY: Significant for hypertension, presumed history of CKD, asthma. Hypothyroidism, cardiac cath in 2014. As per Cardiology, multiple caths and multiple stress tests. PAST SURGICAL HISTORY: Coronary stent in 1999 and 2004. Hernia surgery. SOCIAL HISTORY: Current smoker, pack a day. Alcohol and cocaine on a regular basis. FAMILY HISTORY: Hypertension. REVIEW OF SYSTEMS: Significant for one episode of chest pain. Now symptom free. Otherwise, review of systems negative. States that he has a shock to the chest, but the patient does not have an AICD. PHYSICAL EXAMINATION: GENERAL: Young elderly male, cooperative during examination. VITAL SIGNS: Blood pressure 108/72. Temperature is 98. Pulse is 69. Respirations are 12. HEENT: Unremarkable. Pupils equal and reactive. NECK: Supple, no lymphadenopathy, no thyromegaly. LUNGS: Clear to auscultation and percussion. Good air entry. CARDIOVASCULAR SYSTEM: S1, S2 heard. No gallop, no murmur, no rub. Apical impulse in left fifth intercostal space in midclavicular line. ABDOMEN: Soft and benign. No hepatosplenomegaly. No guarding, no rigidity. Hernial orifices are normal. EXTREMITIES: Good pedal pulses. No pedal edema. CENTRAL NERVOUS SYSTEM: Alert and oriented x 4, nonfocal exam. SKIN: Normal. LABORATORY DATA: White count is 3500, H and H is 12.5 and 36.5, platelet count is 225,000. Electrolytes are normal. DIAGNOSTIC DATA: EKG shows normal sinus rhythm, heart rate of 72, no acute ST-T wave changes. Chest x-ray, no acute process. ASSESSMENT AND PLAN: 1. Chest pain, rule out myocardial infarction. Serial troponins. The patient had multiple stress tests. Stress test was initially ordered and canceled after reading the Cardiology consult note. A stress test will not be done. The patient had a stress test as recently as 02/2018. The patient is being admitted for 23-hour observation. Only serial troponins. 2. Hypertension. Continue amlodipine. 3. Coronary artery disease. Continue aspirin. 4. Nicotine dependence. Nicoderm patch. 5. Cocaine dependence. The patient counseled. 6. Coronary artery spasm is a possibility. 7. Deep venous thrombosis prophylaxis, Lovenox 40 mg subcutaneous daily. Admission for 23 hours. Discharge after the troponins are negative. JOB# [id number] LANDEN/YIN CHAPPELL
[2018-06-04] MEDS ORDERED: LEXISCAN IV ONE ×2 (08:28→08:29)
[2018-06-04] MEDS ORDERED: PEPCID IV SCH (10:00)
[2018-06-04] MEDS: NORVASC PO SCH (10:17)
--- NOTE | 2018-06-04 10:19 | Progress Note ---
Assessment and Plan Palpitations No recorded arrhythmias on tele Dual chamber pacemaker Atypical chest pain Negative troponin x 3 and normal CXR Cath 2009 and 2014 - no significant coronary artery disease Stress test 02/2018 showing no ischemia with no exercise induced ischemic ECG changes Abnormal ECG - unchanged from previous Alcohol abuse Recommendations: No further work-up is needed for atypical chest pain given extensive cardiac work-up in the past Discussed with Dr Nur Subjective Date of service: 06/04/18 Principal diagnosis: Palpitations Interval history: Patient ben this morning was cancelled due to recent ischemic evaluation No arrhythmias noted on tele Objective Vital Signs Temp Pulse Pulse Pulse Pulse Resp BP 06/04/18 07:26 98.1 F 60 18 123/69 06/04/18 03:48 98.1 F 60 18 115/80 06/03/18 23:54 98.3 F 60 18 06/03/18 20:35 60 06/03/18 19:10 86 16 119/72 06/03/18 19:00 82 18 119/72 06/03/18 18:50 99/73 06/03/18 18:29 60 60 60 18 06/03/18 18:28 98.2 F 60 18 06/03/18 17:30 62 11 L 99/73 06/03/18 17:00 60 11 L 104/73 06/03/18 16:00 60 12 97/68 06/03/18 15:00 60 12 108/70 06/03/18 14:35 97.9 F 06/03/18 14:15 69 12 108/70 06/03/18 13:15 67 13 114/80 06/03/18 13:00 18 06/03/18 12:55 80 18 BP Pulse Ox 06/04/18 07:26 94 06/04/18 03:48 100 06/03/18 23:54 93/54 96 06/03/18 20:35 06/03/18 19:10 95 06/03/18 19:00 99 06/03/18 18:50 83 L 06/03/18 18:29 98 06/03/18 18:28 104/73 06/03/18 17:30 97 06/03/18 17:00 96 06/03/18 16:00 96 06/03/18 15:00 95 06/03/18 14:35 03/28/19 14:15 92 06/03/18 13:15 91 06/03/18 13:00 06/03/18 12:55 108/72 96 - Physical Examination HEENT: Positive: PERRL Neck: Positive: neck supple Cardiac: Positive: Reg Rate and Rhythm Lungs: Positive: Normal Exam Neuro: Positive: Grossly Intact Abdomen: Positive: Soft Skin: Positive: Clear Extremities: Absent: edema - Labs and Meds Cardiac Enzymes 06/04/18 Range/Units 05:48 AST 38 (5-40) units/L Coagulation 06/03/18 Range/Units 13:29 PT 12.0 L (12.2-14.9) Sec. INR 0.84 L (0.87-1.13) APTT 33.3 (24.2-36.6) Sec. CBC 06/03/18 Range/Units 13:29 WBC 3.5 L (4.5-11.0) K/mm3 RBC 3.57 L (3.65-5.03) M/mm3 Hgb 12.5 (11.8-15.2) gm/dl Hct 36.5 (35.5-45.6) % Plt Count 225 (140-440) K/mm3 Lymph # 0.9 L (1.2-5.4) K/mm3 [place] # 0.2 (0.0-0.8) K/mm3 Eos # 0.0 (0.0-0.4) K/mm3 Baso # 0.1 (0.0-0.1) K/mm3 Comprehensive Metabolic Panel 06/03/18 06/04/18 Range/Units 13:29 05:48 Sodium 138 137 (137-145) mmol/L Potassium 3.6 3.7 (3.6-5.0) mmol/L Chloride 100.8 101.1 (98-107) mmol/L Carbon Dioxide 25 27 (22-30) mmol/L BUN 16 18 (9-20) mg/dL Creatinine 1.5 1.5 (0.8-1.5) mg/dL Glucose 82 75 (75-100) mg/dL Calcium 9.5 8.7 (8.4-10.2) mg/dL AST 38 (5-40) units/L ALT 14 (7-56) units/L Alkaline Phosphatase 54 (35-129) units/L Total Protein 6.2 L (6.3-8.2) g/dL Albumin 3.7 L (3.9-5) g/dL
[2018-06-04] MEDS: PERCOCET 5/325 PO PRN (12:54)
--- NOTE | 2018-06-04 13:36 | Discharge Summary ---
Providers - Providers Date of Admission: 06/03/18 15:51 Date of discharge: 06/04/18 Attending physician: KRISTINE JORGE 06/03/18 13:42 Consult to Physician [CONS] Stat Comment: dr ceron saw pt in er Consulting Provider: POONAM CERNO Physician Instructions: Reason For Exam: AICD firing [facility] Condition: Fair Hospital course: Patient is 68-year-old presents with chest pain and palpitations. He was seen and evaluated in Emergency department. EKG was unremarkable .cardiac enzymes are normal. He was given aspirin and admitted to rule out acute coronary syndrome. Cardiology was consulted and he was seen by Dr. Osborn. He stated that patient's chest pain is noncardiac. Patient has had cardiac cath in 2009 and twice in 2014 with no significant coronary disease seen. He was subsequently discharged home. Chest pain due to GERD. Disposition: TO HOME OR SELFCARE - Discharge Diagnoses (1) Chest pain Status: Acute (2) GERD (gastroesophageal reflux disease) Status: Acute Core Measure Documentation - Palliative Care Palliative Care/ Comfort Measures: Not Applicable - Core Measures Any of the following diagnoses?: none Exam - Constitutional Vitals: Temp Pulse Resp BP Pulse Ox 98.1 F 60 18 123/69 94 06/04/18 07:26 06/04/18 07:26 06/04/18 07:26 06/04/18 07:26 06/04/18 07:26 Plan Activity: no restrictions Diet: low fat, low cholesterol, low salt Additional Instructions: 1.Follow up with PCP in 1 week. 2.Follow up with Dr. Osborn in 1 week
--- NOTE | 2018-06-04 14:28 | XRay Report ---
LUMBOSACRAL SPINE, 3 VIEWS: History: Low back pain after fall Findings: The vertebral bodies, disk spaces and posterior elements are intact. No compression deformity or malalignment. Mild degenerative disc disease and facet arthropathy are identified at all levels. The SI joints are symmetric and unremarkable. Borderline to mild osteopenia. Impression: Mild lumbar spondylosis. No evidence for acute injury to the lumbar spine.
[2018-06-04] MEDS ORDERED: LOVENOX SUB-Q SCH (22:00)
== END 2018-06-04 18:09 | disposition home or self-care (01) | DRG 309 ==
LOC: ED 12:46 → 4A 15:51
PROVIDERS: ADMIT Internal Medicine; ATTEND Internal Medicine
DX: R00.2 Palpitations (principal); F14.20 Cocaine dependence, uncomplicated; Z72.89 Other problems related to lifestyle; R07.89 Other chest pain; I12.9 Hypertensive chronic kidney disease with stage 1 through stage 4 chronic kidney disease, or unspecified chronic kidney disease; N18.2 Chronic kidney disease, stage 2 (mild); I25.10 Atherosclerotic heart disease of native coronary artery without angina pectoris; F17.200 Nicotine dependence, unspecified, uncomplicated; J45.909 Unspecified asthma, uncomplicated; E03.9 Hypothyroidism, unspecified; Z95.5 Presence of coronary angioplasty implant and graft; Z82.49 Family history of ischemic heart disease and other diseases of the circulatory system
CPT/HCPCS: 36415; 71045; 72100; 80048; 80053; 83036; 83880; 84484; 85025; 85610; 85730; 93005; 93010; G0378; J2785

== ENCOUNTER 2019-03-14 10:44 | Emergency (ER) | payer MEDICARE ==
[2019-03-14 10:59] VITALS: BP 173/89
--- NOTE | 2019-03-14 11:32 | Event Note ---
ED Screening Note ED Screening Note: right hip pain that began a month ago and right back pain states that he fell off something that was about as tall as a trash can did not see anyone after he fell pt has been ambulatory states he also has discharge of the penis denies pain or swelling in the testicular +dysuria states he is sexually active, states he has had a new partner PMHx cardiac stent/pacemaker/MD no allergies to meds This initial assessment/diagnostic orders/clinical plan/treatment(s) is/are subject to change based on patients health status, clinical progression and re- assessment by fellow clinical providers in the ED. Further treatment and workup at subsequent clinical providers discretion. Patient/guardian urged not to elope from the ED as their condition may be serious if not clinically assessed and managed. Initial orders include: XR of the right hip, XR of the L-spine, UA, G/C
[2019-03-14 12:33] LABS: Bilirubin,Urine NEG (Negative); Blood,Urine NEG (Negative); Color,Urine Yellow (Yellow); Mucus,Urine FEW /HPF; Protein,Urine <15 mg/dL mg/dL (Negative); Urobilinogen,Urine < 2.0 mg/dL (<2.0)
--- NOTE | 2019-03-14 12:55 | XRay Report ---
RIGHT HIP 2 VIEWS. INDICATION / CLINICAL INFORMATION: fall a month ago, right hip pain COMPARISON: None available. FINDINGS: BONES / JOINT(S): Subchondral lucency and mild sclerosis at the femoral head. 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 No bony collapse No significant arthritis. SOFT TISSUES: No significant abnormality. ADDITIONAL FINDINGS: None. Signer Name: Karlos José MD Signed: 03/14/2019 12:51 PM Workstation Name: [id number]
--- NOTE | 2019-03-14 12:59 | XRay Report ---
LUMBAR SPINE HISTORY: Fall one month ago. Right back pain. COMPARISON: 06/04/2018 and 07/10/2017 TECHNIQUE: 3 view(s) of the lumbar spine obtained. FINDINGS: Vertebrae: Normal alignment. Mild levoscoliosis. No fracture or significant abnormality. Disc Spaces:No significant abnormality. Facet Joints:Facet joint arthropathy at L5-S1. Additional findings: None. IMPRESSION: 1. No acute or subacute abnormality of the lumbar spine. 2. Lower lumbar facet joint arthropathy. Signer Name: Andrew Go MD Signed: 03/14/2019 12:54 PM Workstation Name: [id number]
--- NOTE | 2019-03-14 14:36 | Emergency Department Report ---
ED General Adult HPI - General Chief complaint: Pain General Stated complaint: RT SIDE SHARP PAIN Time Seen by Provider: 03/14/19 11:29 Source: patient Mode of arrival: Wheelchair Limitations: No Limitations - History of Present Illness Initial comments: She presents to the emergency department with a chief complaint of left hip pain and lower back pain from a fall 6 weeks ago. Patient states that he presents to the emergency department today because the symptoms aren't getting any better. Patient denies any issues with his bowel or bladder. Patient does express concern for penile discharge and is concerned of STD exposure. -: Sudden Location: back, pelvis Severity scale (0 -10): 4 Quality: dull Consistency: constant Improves with: none Worsens with: none Associated Symptoms: denies other symptoms Treatments Prior to Arrival: none - Related Data Home Medications Medication Instructions Recorded Confirmed Last Taken amLODIPine 5 mg PO DAILY 06/03/18 06/03/18 Unknown Previous Rx's Medication Instructions Recorded Last Taken Type traMADoL [Ultram] 50 mg PO Q6HR PRN #24 tablet 03/14/19 Unknown Rx Allergies Allergy/AdvReac Type Severity Reaction Status Date / Time No Known Allergies Allergy Verified 10/11/17 10:31 ED Review of Systems ROS: Stated complaint: RT SIDE SHARP PAIN Other details as noted in HPI Constitutional: denies: chills, fever Eyes: denies: eye pain, eye discharge, vision change ENT: denies: ear pain, throat pain Respiratory: denies: cough, shortness of breath, wheezing Cardiovascular: denies: chest pain, palpitations Endocrine: no symptoms reported Gastrointestinal: denies: abdominal pain, nausea, diarrhea Genitourinary: denies: urgency, dysuria Musculoskeletal: back pain. denies: joint swelling, arthralgia Skin: denies: rash, lesions Neurological: denies: headache, weakness, paresthesias Psychiatric: denies: anxiety, depression Hematological/Lymphatic: denies: easy bleeding, easy bruising ED Past Medical Hx - Past Medical History Previous Medical History?: Yes Hx Hypertension: Yes Hx Heart Attack/AMI: No Hx Renal Disease: Yes (CKD STAGE 2) Hx Sickle Cell Disease: No Hx Seizures: Yes Hx Asthma: Yes Hx COPD: No Hx HIV: No Additional medical history: ulcer hypothyroid. A cardiac catheterization was done 02/05/2015. It showed mild nonobstructive coronary disease. - Surgical History Past Surgical History?: Yes Hx Coronary Stent: Yes (X1 IN 1999 AND X1 IN 2004) Additional Surgical History: hernia surgery 01/21, CARDIAC STENT - Social History Smoking Status: Current Every Day Smoker - Medications Home Medications: Home Medications Medication Instructions Recorded Confirmed Last Taken Type amLODIPine 5 mg PO DAILY 06/03/18 06/03/18 Unknown History traMADoL [Ultram] 50 mg PO Q6HR PRN #24 tablet 03/14/19 Unknown Rx ED Physical Exam - General Limitations: No Limitations General appearance: alert, in no apparent distress - Head Head exam: Present: atraumatic, normocephalic - Eye Eye exam: Present: normal appearance, PERRL - ENT ENT exam: Present: mucous membranes moist - Neck Neck exam: Present: normal inspection - Respiratory Respiratory exam: Present: normal lung sounds bilaterally. Absent: respiratory distress - Cardiovascular Cardiovascular Exam: Present: regular rate, normal rhythm. Absent: systolic murmur, diastolic murmur, rubs, gallop - GI/Abdominal GI/Abdominal exam: Present: soft, normal bowel sounds. Absent: distended, tenderness - Rectal Rectal exam: Present: deferred - Extremities Exam Extremities exam: Present: normal inspection - Back Exam Back exam: Present: other (TTP of the L spine ) - Neurological Exam Neurological exam: Present: alert, oriented X3 - Psychiatric Psychiatric exam: Present: normal affect, normal mood - Skin Skin exam: Present: warm, dry, intact, normal color. Absent: rash ED Course Vital Signs 03/14/19 10:59 Temperature 97.4 F L Pulse Rate 60 Respiratory 16 Rate Blood Pressure 173/89 O2 Sat by Pulse 100 Oximetry ED Medical Decision Making - Radiology Data Radiology results: report reviewed - Medical Decision Making Discussion x-rays results of the patient's hip was so questionable concern for lucency in the head of the femur concerning for avascular necrosis. The patient denies a history of sickle cell anemia. Patient also denies a history of pelvic or hip injuries. Discussed with patient and need to follow up with orthopedic surgery for further evaluation which the patient acknowledged and understood Patient states he's had tramadol in the past without issue Critical care attestation.: If time is entered above; I have spent that time in minutes in the direct care of this critically ill patient, excluding procedure time. ED Disposition Clinical Impression: Lower back pain, Hip pain, Penile discharge Disposition: TO HOME OR SELFCARE Is pt being admited?: No Does the pt Need Aspirin: No Condition: Stable Instructions: Sexually Transmitted Diseases (ED), Low Back Strain (ED), Hip Sprain (ED) Additional Instructions: Return if worse Please follow-up with orthopedic surgery concerning findings of x-ray of the hip we discussed Referrals: PRIMARY CARE, [Primary Care Provider] - 3-5 Days [facility] [Provider Group] - 3-5 Days [facility] [Provider Group] - 3-5 Days ANGELINE BEASLEY MD [Staff Physician] - 3-5 Days Time of Disposition: 14:41
[2019-03-14] MEDS: LIDOCAINE-MPF (1%) 10 MG/1 ML VIAL 5 ML INFILTRATI ONE (15:08)
[2019-03-14] MEDS: ONDANSETRON 4 MG ODT TAB PO ONE (15:08)
[2019-03-14] MEDS: AZITHROMYCIN 250 MG TAB PO ONE (15:08)
[2019-03-14] MEDS: ACETAMINOPHEN W/CODEINE 300-30 MG TAB PO ONE (16:15)
== END 2019-03-14 16:33 | disposition home or self-care (01) ==
LOC: ED 10:44
DX: M54.5 Low back pain (principal); R36.9 Urethral discharge, unspecified; M25.559 Pain in unspecified hip; I12.9 Hypertensive chronic kidney disease with stage 1 through stage 4 chronic kidney disease, or unspecified chronic kidney disease; N18.2 Chronic kidney disease, stage 2 (mild); F17.200 Nicotine dependence, unspecified, uncomplicated
CPT/HCPCS: 72100; 73502; 81001; 87591; 96372; 99283; J0696; Q0162

== ENCOUNTER 2019-05-10 07:29 | Outpatient (CLI) | payer MEDICARE ==
[2019-05-10] MEDS ORDERED: LIDOCAINE (1%) 10 MG/1 ML VIAL 20 ML MDV ONE (07:57)
--- NOTE | 2019-05-10 09:53 | Fluoroscopy Report ---
ARTHROGRAM OF THE RIGHT HIP HISTORY: M25.551 PAIN IN RIGHT HIP. COMPARISON: None. CONSENT: The risks,benefits, and alternatives of theprocedure were discussed with the patient who agr eed toproceed. TECHNIQUE: The patient was placed supine on the fluoroscopy table. The right hip joint was identifie d and overlying skin demarcated under fluoroscopic guidance. Area was prepped and draped in the usual sterile fashion. Time-out was performed. Skin and subcutaneous tissues were anesthetized with lid ocaine. A 25-gauge spinal needle was placed into the joint space under fluoroscopic guidance. 14 cc of a solu tion containing equal volumes of Omnipaque 180 and sterile saline was injected. The needle was remove d and the patient tolerated the procedure well without immediate complication. FLUOROSCOPIC TIME: 60 seconds # IMAGES: 7 IMPRESSION: Technically successful arthrogram. See post arthrogram CT Signer Name: Yordy Talbert Jr, MD Signed: 05/10/2019 9:49 AM Workstation Name: [id number]
--- NOTE | 2019-05-10 10:10 | Cat Scan Report ---
CT arthrogram right hip without contrast INDICATION : M25.551 PAIN IN RIGHT HIP. TECHNIQUE: Axial imaging performed through the right hip without the use of intravenous contrast. In tra-articular contrast was injected--please see that separate report for details. All CT scans at [facility] s location are performed using CT dose reduction for ALARA by means of automated exposure control. COMPARISON: Right hip radiograph from 03/14/2019 FINDINGS: There are findings of osteonecrosis involving the femoral head encompassing roughly 50% of the articular surface. No obvious femoral head collapse identified; however, the sagittal and coronal reformatted images are very poor quality. The radiographs from last month showed no collapse. 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 There is also degenerative tearing of the anterior superior labr um. The ligamentum teres is intact. IMPRESSION: 1. 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 No obvious collapse ricki ntified. There is mild underlying DJD in the hip which appears similar to the left hip on the compari son radiograph. 2. Anterior superior labral tearing. Signer Name: Marcos Vasquez MD Signed: 05/10/2019 10:06 AM Workstation Name: [id number]
== END 2019-05-10 07:30 | disposition home or self-care (01) ==
LOC: FLUORO 07:29
DX: M25.551 Pain in right hip (principal); M87.88 Other osteonecrosis, other site; S73.191A Other sprain of right hip, initial encounter; I12.9 Hypertensive chronic kidney disease with stage 1 through stage 4 chronic kidney disease, or unspecified chronic kidney disease; N18.2 Chronic kidney disease, stage 2 (mild); E03.9 Hypothyroidism, unspecified; I25.2 Old myocardial infarction; E78.5 Hyperlipidemia, unspecified; F14.10 Cocaine abuse, uncomplicated; K21.9 Gastro-esophageal reflux disease without esophagitis; F17.210 Nicotine dependence, cigarettes, uncomplicated; I42.9 Cardiomyopathy, unspecified; J45.909 Unspecified asthma, uncomplicated; F32.9 Major depressive disorder, single episode, unspecified; Z72.89 Other problems related to lifestyle; Z79.899 Other long term (current) drug therapy; Z95.5 Presence of coronary angioplasty implant and graft; X58.XXXA Exposure to other specified factors, initial encounter; Y93.89 Activity, other specified; Y92.89 Other specified places as the place of occurrence of the external cause; Y99.8 Other external cause status
CPT/HCPCS: 27093; 73525; 73700; Q9965

== ENCOUNTER 2019-06-27 14:54 | Emergency (ER) | payer MEDICARE | END 2019-06-27 20:02 | disposition home or self-care (01) | LOC: ED 14:54 | DX: R07.89 Other chest pain (principal); R55 Syncope and collapse; R82.71 Bacteriuria; E03.9 Hypothyroidism, unspecified; E16.2 Hypoglycemia, unspecified; I10 Essential (primary) hypertension; R56.9 Unspecified convulsions; J45.909 Unspecified asthma, uncomplicated; F17.200 Nicotine dependence, unspecified, uncomplicated; Z98.890 Other specified postprocedural states; Z87.448 Personal history of other diseases of urinary system; Z79.899 Other long term (current) drug therapy | CPT/HCPCS: 36415; 70450; 71045; 80048; 80307; 81001; 82550; 82962; 83735; 84443; 84484; 85027; 85610; 87086; 87635; 93005; 99285; J7040 ==